=== PATIENT | male | born 1965 | race Caucasian/White ===

== ENCOUNTER → 2016-07-05 | Day surgery (SDC) | payer OTHER ==
[~2016-07-05] VITALS: Ht 177.8 cm; Wt 120.0 kg
[~2016-07-05] MED LIST: BUPIVACAINE HCL PF 0.5% 30 ML VIAL ONE; CEPH-460 PO; CLAR10CA3 PO; FAMOTIDINE 20 MG/2 ML VIAL ONE; FENO54TA PO; HYDR-3288 PO; LACTATED RINGER'S 1000 ML INJ 1,000 ML ONE; LIDOCAINE HCL 2% 50 ML VIAL ONE; LOSA50TA PO; LOVA20TA PO; MIDAZOLAM HCL 2 MG/2 ML VIAL ONE; MOBI15TA PO; NEOMYCIN/POLYMYXIN 1 ML G.U. IRRIGANT IR ONE; ONDANSETRON HCL 4 MG/2 ML VIAL IV PUSH ONE; PROPOFOL 200 MG/20 ML AMP IV ONE; SIMV20TA PO; TRIAMCINOLONE ACETONIDE 40 MG/ML VIAL ONE; ceFAZolin 2 GM PREMIX 50 ML ONE; ePHEDrine/NS 25 MG/5 ML SYR IV ONE
[2016-07-05 08:16] VITALS: BP 128/90; PULSE 66; RESP 18; TEMP 98.2; O2SAT 96
[2016-07-05 08:18] LABS: HEMATOCRIT 47.3 % (39.0-51.0); MEAN CELL VOLUME 88.5 FL (80.0-100.0); MEAN CORPUSCULAR HEMOGLOBIN 28.5 PG (27.0-34.0); MEAN CORPUSCULAR HGB CONC 32.3 % (32.0-36.0); PLATELET COUNT 228 TH/MM3 (150-450); RED BLOOD COUNT 5.35 MIL/MM3 (4.50-5.90); RED CELL DISTRIBUTION WIDTH 13.6 % (11.6-17.2); REVIEW FLAG FINAL; WHITE BLOOD COUNT 6.9 TH/MM3 (4.0-11.0)
[2016-07-05 11:00] VITALS: BP 118/69; PULSE 73; RESP 16; TEMP 98.4; O2SAT 98
--- NOTE | 2016-07-09 13:34 | MP ---
cc: RICARDO SHELTON III, M.D. DATE OF SURGERY: 07/05/2016 PREOPERATIVE DIAGNOSIS 1. Left carpal tunnel syndrome. 2. Left middle finger trigger finger. PROCEDURE 1. Left open carpal tunnel release. 2. Left third A1 vijaya release. SURGEON Ricardo Shelton III, MD PROCEDURE The patient was brought to the operating room and placed supine on the operating table. After the correct site and side of surgery were verified by members of each team in the room multiple times including the patient, myself and after adequate preoperative markings and preoperative written consent were verified by everyone and after adequate preoperative time-out was performed to everyone's satisfaction, after adequate IV sedation had been achieved the left upper extremity was prepped and draped in the usual sterile surgical fashion. A 50/50 mixture of 2% plain lidocaine 0.57 plain Marcaine was infiltrated in the skin and subcutaneous tissues near the base of the palm and also at the palmar flexion crease in the third ray. The limb was exsanguinated with an Raymond wrap. A highly placed well-padded axillary tourniquet was inflated to 200 mmHg for a total of 25 minutes. A longitudinally oriented incision at the base of the palm was made and carried down through skin and subcutaneous tissue. Blunt dissection was performed. The palmar fascia was retracted in opposite directions. The transverse carpal ligament was identified and divided in its midline from its proximal most to its distal-most extents, completely freeing the carpal tunnel contents. There was a significant amount of hypertrophic tenosynovium. The nerve was otherwise intact and did not appear compromised. There was no other evidence of mass effect either. Thorough irrigation with saline was used and then the skin edges were reapproximated using interrupted and running 4-0 Nylon sutures. Incision was then made in the palmar flexion crease overlying the third ray. Blunt dissection was performed. Bipolar electrocautery was used as needed. Blunt dissection down to the flexor tendons revealed a significantly hypertrophic tenosynovium. The third A1 vijaya was then identified and divided in its entirety from its proximal most to its distal-most extents completely freeing the flexor tendon. The flexor tendons were otherwise in continuity and there was no evidence of any other abnormality. Thorough irrigation was performed with saline. The skin edges were reapproximated using interrupted and running 4-0 Nylon sutures. The hand and arm were thoroughly cleansed and dried. Betadine, Adaptic dressing was applied on top of the wound followed by a bulky soft dressing. The axillary tourniquet was released and the hand all the fingers became immediately soft, pink, warm and had brisk capillary refill of less than 2 seconds. Circumferential dressing was applied. The patient was awakened from anesthesia and transported to Post Anesthesia Care Unit awake and in stable condition at the end of the case. Sponge, needle, instrument counts were correct at the end of the case as reported by nurses in the room. MD AMANDA Augustin III/MICHAEL /10:10 AM /1:21 PM
== END | disposition home or self-care (01) ==
LOC: PHSDC 06:49
PROVIDERS: ATTEND Orthopaedic Surgery Hand Surgery
DX: G56.02 Carpal tunnel syndrome, left upper limb (principal); M65.332 Trigger finger, left middle finger; I10 Essential (primary) hypertension; E78.5 Hyperlipidemia, unspecified
CPT/HCPCS: 01810; 26055; 36415; 64721; 85027; J0690; J2250; J2405; J3301; J7120

== ENCOUNTER 2016-08-19 14:17 | Emergency (ER) | payer OTHER ==
[~2016-08-19] VITALS: Ht 177.8 cm; Wt 123.0 kg
[~2016-08-19 14:17] MED LIST changes: -BUPIVACAINE HCL PF 0.5% 30 ML VIAL ONE; -CEPH-460 PO; -FAMOTIDINE 20 MG/2 ML VIAL ONE; -HYDR-3288 PO; -LACTATED RINGER'S 1000 ML INJ 1,000 ML ONE; -LIDOCAINE HCL 2% 50 ML VIAL ONE; -MIDAZOLAM HCL 2 MG/2 ML VIAL ONE; -NEOMYCIN/POLYMYXIN 1 ML G.U. IRRIGANT IR ONE; -ONDANSETRON HCL 4 MG/2 ML VIAL IV PUSH ONE; -PROPOFOL 200 MG/20 ML AMP IV ONE; -TRIAMCINOLONE ACETONIDE 40 MG/ML VIAL ONE; -ceFAZolin 2 GM PREMIX 50 ML ONE; -ePHEDrine/NS 25 MG/5 ML SYR IV ONE
[2016-08-19 14:19] VITALS: BP 113/77; PULSE 72; RESP 16; TEMP 97.8; O2SAT 98
[2016-08-19 14:36] LABS: GLUCOSE,URINE NEG (NEG); KETONE, URINE NEG (NEG); NITRITE,URINE NEG (NEG)
[2016-08-19 14:39] LABS: BLOOD, URINE MOD (NEG)
[2016-08-19 14:40] LABS: METHOD OF COLLECTION CLEAN CATCH; URINE COLOR YELLOW (YELLW/STRAW)
[2016-08-19 14:41] LABS: COMMENT (UR) CULT NOT INDICATED; CULTURE IF INDICATED CULT NOT INDICATED; SQUAMOUS EPITHELIAL CELL URINE 0-5 /hpf (0-5)
--- NOTE | 2016-08-19 14:49 | PD ---
HPI Chief Complaint: Flank/Kidney Pain Time Seen by Provider: 14:31 Travel History International Travel<30 days: No Contact w/Intl Traveler<30days: No Traveled to known affect area: No History of Present Illness HPI This patient complains of the abrupt onset of left flank pain. He has history of kidney stones in the past and this felt similar. He denies fever or injury. Symptoms severity is moderate. No alleviating factors. Duration is 2 days PFSH Past Medical History Hx Anticoagulant Therapy: No Cancer: No Cardiovascular Problems: Yes (HTN) Diabetes: No Endocrine: No Gastrointestinal Disorders: Yes (COLITIS) Genitourinary: Yes (KIDNEY STONE) Hepatitis: No Hiatal Hernia: No Hypertension: Yes Immune Disorder: No Kidney Stones: Yes Medical other: No Musculoskeletal: No Neurologic: No Psychiatric: No Reproductive: No Respiratory: No Thyroid Disease: No Past Surgical History Abdominal Surgery: No AICD: No Cardiac Surgery: No Ear Surgery: No Endocrine Surgery: No Eye Surgery: No Genitourinary Surgery: Yes (LITHOTRIPSY) Gynecologic Surgery: No Joint Replacement: No Neurologic Surgery: No Oral Surgery: No Pacemaker: No Thoracic Surgery: No Other Surgery: Yes Social History Alcohol Use: No Tobacco Use: Yes Substance Use: No Allergies-Medications (Allergen,Severity, Reaction): Coded Allergies: No Known Allergies (Verified , 08/19/16) Reported Meds & Prescriptions Reported Meds & Active Scripts Active Reported Mobic (Meloxicam) 15 Mg Tab 15 Mg PO DAILY Simvastatin 20 Mg Tab 20 Mg PO DAILY Losartan (Losartan Potassium) 50 Mg Tab 50 Mg PO DAILY Fenofibrate 54 Mg Tab 54 Mg PO DAILY Claritin (Loratadine) 10 Mg Cap 10 Mg PO DAILY Review of Systems General / Constitutional: No: Fever Eyes: No: Visual changes HENT: No: Headaches Cardiovascular: No: Chest Pain or Discomfort Respiratory: No: Shortness of Breath Gastrointestinal: Positive: Nausea, No: Abdominal Pain Genitourinary: Positive: Hematuria, Flank Pain, No: Dysuria Musculoskeletal: No: Pain Skin: No Rash Neurologic: No: Weakness Psychiatric: No: Depression Endocrine: No: Polydipsia Hematologic/Lymphatic: No: Easy Bruising Physical Exam Narrative GENERAL: Well-nourished, well-developed patient with left flank pain. SKIN: Focused skin assessment reveals no rash and nodules. Skin is Warm and dry. HEAD: Atraumatic. Normocephalic. EYES: Pupils equal and round. No scleral icterus. No injection or drainage. ENT: No nasal bleeding or discharge. Mucous membranes pink and moist. NECK: Trachea midline. No JVD. CARDIOVASCULAR: Regular rate and rhythm. No murmur appreciated. RESPIRATORY: No accessory muscle use. Clear to auscultation. Breath sounds equal bilaterally. GASTROINTESTINAL: Abdomen soft, non-tender, nondistended. Hepatic and splenic margins not palpable. MUSCULOSKELETAL: No obvious deformities. No clubbing. No cyanosis. No edema. NEUROLOGICAL: Awake and alert. No obvious cranial nerve deficits. Motor grossly within normal limits. Normal speech. PSYCHIATRIC: Appropriate mood and affect; insight and judgment normal. Data Data Last Documented VS Vital Signs Date Time Temp Pulse Resp B/P Pulse Ox O2 Delivery O2 Flow Rate FiO2 08/19/16 14:19 97.8 72 16 113/77 98 Orders Urinalysis - C+S If Indicated (08/19/16 14:23) Ct Abd/Pel W/O Iv Contrast (08/19/16 ) Ondansetron Inj (Zofran Inj) (08/19/16 15:00) Morphine Inj (Morphine Inj) (08/19/16 15:00) Labs Laboratory Tests Test 08/19/16 14:28 Urine Collection Type CLEAN CATCH Urine Color YELLOW Urine Turbidity CLEAR Urine pH 5.0 Urine Specific [place] 1.025 Urine Protein NEG mg/dL Urine Glucose (UA) NEG mg/dL Urine Ketones NEG mg/dL Urine Occult Blood MOD Urine Nitrite NEG Urine Bilirubin NEG Urine Leukocyte Esterase NEG Urine RBC 4-9 /hpf Urine Squamous Epithelial 0-5 /hpf Cells Microscopic Urinalysis Comment CULT NOT INDICATED MDM Medical Decision Making Medical Screen Exam Complete: Yes Emergency Medical Condition: Yes Medical Record Reviewed: Yes Differential Diagnosis Kidney stone, sciatica, pyelonephritis Narrative Course I have reviewed the patient's electronic medical record. I gave him injection of morphine and Zofran for symptom relief Urinalysis shows 4-[address] infection CT of abdomen and pelvis shows numerous tiny little stones but no obstruction Stable for outpatient urology follow-up Diagnosis Primary Impression: Acute left flank pain Additional Impression: Kidney stones Additional Instructions: The patient was advised to follow up with urologist Med/Other Pt SpecificInfo: Other Disposition: 01 DISCHARGE HOME Condition: Stable Jacob Muñoz MD August 19, 2016 14:49
[2016-08-19] MEDS ORDERED: ONDANSETRON HCL 4 MG/2 ML VIAL IM ONE (15:00)
[2016-08-19] MEDS ORDERED: MORPHINE SULFATE 4 MG/ML INJ IM ONE (15:00)
--- NOTE | 2016-08-19 15:18 | RADHPO ---
EXAM DATE/TIME: 08/19/2016 14:57 [facility] COMPARISON: No previous studies available for comparison. INDICATIONS : Left flank pain. ORAL CONTRAST: No oral contrast ingested. RADIATION DOSE: 25.98 CTDIvol (mGy) MEDICAL HISTORY : Hypertension. Renal calculi. Colitis SURGICAL HISTORY : None. ENCOUNTER: Initial ACUITY: 2 days PAIN SCALE: 9/10 LOCATION: Left flank TECHNIQUE: Volumetric scanning of the abdomen and pelvis was performed. Using automated exposure control and ad justment of the mA and/or kV according to patient size, radiation dose was kept as low as reasonably achievable to obtain optimal diagnostic quality images. FINDINGS: The lung base is are clear. The liver, spleen, pancreas and adrenals are unremarkable. Right kidney there are multiple small calcifications in the right kidney largest measuring approximat e 7 mm.. Renal cysts is seen in the lower pole of the right kidney. There is no perinephric strandi ng. No calcifications along the expected course of the right ureter. Left kidney: Multiple calcifications are seen in the left kidney largest measures roughly 6 mm. Apparent 1 cm cys t is noted. There is no perinephric stranding. There may be a1 mm calcification just above the left UV junction. Pelvic contents are otherwise unremarkable. Moderate degenerative changes are present in the MR spine CONCLUSION: Multiple small renal stones. There is no significant obstruction. There may be a1 mm stone at the l eft ureterovesical junction. Say Bucio MD FACR on August 19, 2016 at 15:12 Board Certified Radiologist. This report was verified electronically.
== END 2016-08-19 16:22 | disposition home or self-care (01) ==
LOC: PHED 14:17
DX: R10.9 Unspecified abdominal pain (principal); N20.0 Calculus of kidney; I10 Essential (primary) hypertension; Z72.0 Tobacco use; Z87.442 Personal history of urinary calculi; Z86.79 Personal history of other diseases of the circulatory system; Z87.19 Personal history of other diseases of the digestive system
CPT/HCPCS: 74176; 81001; 96372; 99284; J2270; J2405